=== PATIENT | male | born 1950 | race Caucasian/White ===

== ENCOUNTER 2017-11-07 08:36 | Observation (INO) | payer MEDICARE ==
[2017-11-07] MEDS ORDERED: Acetaminophen 500 MG TAB ONE (09:50)
[2017-11-07] MEDS ORDERED: methylPREDNISolone Sod Succ/PF 125 MG/2 ML VIAL ONE (09:52)
[2017-11-07] MEDS ORDERED: Sterile Water 10 ML ONE (09:53)
[2017-11-07 10:03] LABS: Hematocrit 43.2 % (42.0-52.0); Mean Platelet Volume 9.9 fL (7.4-10.4); Red Blood Cell (RBC) Count 4.57 mill/uL (4.70-6.10); White Blood Cell (WBC) Count 8.2 thou/uL (4.8-10.8)
[2017-11-07] MEDS ORDERED: Azithromycin 500 MG in Sodium Chloride 0.9% 250 ML 250 ML IVPB ONE (10:15)
[2017-11-07] MEDS ORDERED: Oseltamivir 75 MG CAP PO ONE (10:15)
[2017-11-07 10:18] LABS: ALT (SGPT) 29 U/L (8-55); AST (SGOT) 27 U/L (5-34); Alkaline Phosphatase 70 U/L (40-150); Anion Gap 12 mmol/L (10-20); BUN (Urea Nitrogen) 12 mg/dL (8.4-25.7); Bilirubin, Total 0.5 mg/dL (0.2-1.2); Calc. Creatinine Clearance 0 mL/min (70-130); Calcium 8.9 mg/dL (7.8-10.44); Carbon Dioxide 23 mmol/L (23-31); Chloride 102 mmol/L (98-107); Estimated GFR-MDRD 54; Globulin 3.2 g/dL (2.4-3.5); Protein, Total 7.4 g/dL (5.8-8.1)
[2017-11-07 10:24] LABS: Lactic Acid - Sepsis 1.6 mmol/L (0.5-2.2)
[2017-11-07 10:29] LABS: Metamyelocyte 2 % (0-0); Neutrophil 70 % (42-75)
--- NOTE | 2017-11-07 11:21 | RAD ---
PORTABLE CHEST: HISTORY: Cough and congestion. COMPARISON: 11/19/09. FINDINGS: There is focal density in the right lung base which produces tenting of the right hemidiaphragm. Thi s is a new finding from the prior exam. This could represent focal atelectasis and/or infiltrate; ho wever, I cannot exclude other processes in the right lung base. This should be followed up. Lungs are otherwise clear. Heart and mediastinum are unremarkable. IMPRESSION: New density in the right lung base obscuring portions of the right hemidiaphragm. Recommend close fo llowup with PA and lateral views of the chest after medical treatment. CODE T POS: [facility]
[2017-11-07] MEDS ORDERED: Bisacodyl 5 MG TAB PO PRN (11:32)
[2017-11-07] MEDS ORDERED: cefTRIAXone\\ROCEPHIN 1 GM in Sodium Chloride 0.9% 100 ML IVPB SCH (11:45)
--- NOTE | 2017-11-07 11:50 | HP ---
PRIMARY CARE PHYSICIAN: Qamar Garcia M.D. CHIEF COMPLAINT: Cough. HISTORY OF PRESENT ILLNESS: Mr. Narayanan is a pleasant 66-year-old gentleman who was seen at [facility] on 11/07/2017. He reports that he developed a cough 2 days ago. He repor ts that it is nonproductive, accompanied by body aches, on and off headaches, had a temperature of 10 2 degrees Fahrenheit this morning. He denies any sick contacts. He received influenza vaccine this year. He came to the emergency room because he was not improving. REVIEW OF SYSTEMS: The following complete review of systems was negative, unless otherwise mentioned in the HPI or below: Constitutional: Weight loss or gain, sense of well-being, ability to conduct usual activities, exerc ise tolerance. Skin/Breast: Rash, itching, changes in hair growth or loss, nail changes, breast lumps, tenderness, swelling, nipple discharge. Eyes: Vision, double vision, tearing, blind spots, pain. ENT/Mouth: Headaches (location, time of onset, duration, precipitating factors), vertigo, lightheade dness, injury. Vision, double vision, tearing, blind spots, pain, nose bleeding, colds, obstruction, discharge, dental difficulties, gingival bleeding, dentures, neck stiffness, pain, tenderness, masses in thyroid or other areas Cardiovascular: Precordial pain, substernal distress, palpitations, syncope, dyspnea on exertion, or thopnea, nocturnal paroxysmal dyspnea, edema, cyanosis, hypertension, heart murmurs, varicosities, ph lebitis, claudication. Respiratory: Pain, shortness of breath, wheezing, stridor, cough, hemoptysis, fever or night sweats Gastrointestinal: Poor appetite, dysphagia, indigestion, abdominal pain, heartburn, eructation, naus ea, vomiting, hematemesis, jaundice, constipation, or diarrhea, abnormal stools (evin-colored, tarry, bloody, greasy, foul smelling), flatulence, hemorrhoids, recent changes in bowel habits. Genitourinary: Urgency, frequency, dysuria, nocturia, hematuria, polyuria, oliguria, unusual (or marilyn nge in) color of urine, stones, hesitancy, change in size of stream, dribbling, acute retention or in continence, libido, potency. Musculoskeletal: Pain, swelling, redness or heat of muscles or joints, limitation, of motion, muscul ar weakness, atrophy, cramps. Neurologic/Psychiatric: Convulsions, paralyses, tremor, incoordination, paraesthesias, difficulties with memory of speech, sensory or motor disturbances, or muscular coordination (ataxia, tremor), emot ional problems, anxiety, depression, previous psychiatric care, unusual perceptions, hallucinations. Allergy/Immunologic: Skin rash, anemia, bleeding tendency, polydipsia, polyuria, intolerance to heat or cold. PAST MEDICAL HISTORY: Significant for dyslipidemia, hypertension, coronary artery disease followed b more Reza. PAST SURGICAL HISTORY: Significant for CABG x3 in [address] Hedrick and right knee surgery. SOCIAL HISTORY: The patient smokes 1 pack of cigarettes a day. He reports occasional alcohol use. He denies recreational drug use. FAMILY HISTORY: Significant for myocardial infarction in his father. CODE STATUS: The patient is FULL CODE. ALLERGIES: No known drug allergies. CURRENT MEDICATIONS: Include amlodipine 10 mg daily, Coenzyme Q10 100 mg daily, Colace 200 mg 2 time s a day, fish oil 1 capsule daily, Zyrtec 10 mg daily, multivitamins 1 tablet daily, aspirin 81 mg da steven, and Crestor 20 mg daily. PHYSICAL EXAMINATION: GENERAL: On examination, Mr. Narayanan is awake and alert, not in acute distress. VITAL SIGNS: Blood pressure is 134/74, pulse is 65. He is breathing at rate of 20 and saturating 97 % on room air, temperature is 99.1 degrees Fahrenheit. EYES: No scleral icterus. No conjunctival pallor. ENT: Dry mucosal membranes, no oropharyngeal erythema or exudates. NECK: Supple, nontender, normal range of movement. Trachea is midline. RESPIRATORY: Accessory muscles of breathing are not active. Chest wall movements are symmetric bila terally. He has occasional expiratory wheeze. CARDIOVASCULAR: S1 and S2 are heard, regular. Peripheral pulses are palpable. No carotid bruit, no pericardial rub. ABDOMEN: Soft, nontender, bowel sounds are heard, no hepatomegaly, no splenomegaly. NEUROLOGIC: Cranial nerves II-XII are intact. Deep tendon reflexes are 2+. SKIN: No rashes or subcutaneous nodules. LYMPHATICS: No cervical lymphadenopathy. MUSCULOSKELETAL: Power is 5/5 in all 4 extremities. Normal range of movement at all major extremity joints. PSYCHIATRIC: Normal mood, normal affect, patient is oriented to person, place, and time. IMAGING DATA AND LABORATORY DATA: Mr. Narayanan's labs and investigations were reviewed. He had a est x-ray, portable, which appears to show an early infiltrate in the right lower lobe. Laboratory i nvestigations show normal white count, normal hemoglobin, normal platelet count, mildly decreased sod ium of 133, elevated creatinine of 1.32, otherwise unremarkable comprehensive metabolic profile and n ormal BNP. ASSESSMENT AND PLAN: Mr. Narayanan is a pleasant 66-year-old gentleman who was seen at [facility] on 11/07/2017. His problem list includes: 1. Influenza A infection. Mr. Narayanan has received a dose of Tamiflu, he will be continued on the same. He will be admitted to the hospital in observation status for now. 2. Pneumonia: Suspected. He has received ceftriaxone and azithromycin, we will continue the same f or now. 3. Hyponatremia: Mild, we will recheck. 4. Coronary artery disease: Appears stable. 5. Renal insufficiency: His creatinine today is 1.32, last known creatinine on 06/28/2017 was 1.09. Clinically, he appears dehydrated. We will provide intravenous fluids and recheck creatinine. 6. Tobacco abuse: Patient has been counseled regarding tobacco cessation. We will start him on crow otine replacement therapy. Many thanks for allowing me to participate in your patient's care. Please feel free to contact me wi th any questions or concerns. LEVEL OF RISK: Moderate. LEVEL OF COMPLEXITY: Moderate.
[2017-11-07] MEDS ORDERED: Ondansetron ODT 4 MG TAB SL PRN (13:04)
[2017-11-07] MEDS ORDERED: Acetaminophen 325 MG TAB PO PRN (13:04)
[2017-11-07] MEDS ORDERED: Ondansetron HCl/PF 4 MG/2 ML Vial IVP PRN (13:04)
[2017-11-07] MEDS: Sodium Chloride 0.9% 1,000 ML IV SCH (14:35)
[2017-11-07 15:23] VITALS: BMI 31.8
[2017-11-07] MEDS ORDERED: Nicotine 21 MG PATCH TD SCH (21:00)
[2017-11-07] MEDS ORDERED: Oseltamivir 75 MG CAP PO SCH (21:00)
[2017-11-08] MEDS: Sodium Chloride 0.9% 1,000 ML IV SCH (03:10)
[2017-11-08 04:25] LABS: #Lymphocytes 1.2 thou/uL (1.20-3.40); #Monocytes 0.8 thou/uL (0.11-0.59); #Neutrophils 6.7 thou/uL (1.40-6.50); %Basophils 0.1 % (0.0-1.0); %Eosinophils 0.3 % (0.0-10.0); %Lymphocytes 13.5 % (21.0-51.0); %Monocytes 9.5 % (0.0-10.0); Hematocrit 40.5 % (42.0-52.0); Mean Platelet Volume 8.9 fL (7.4-10.4); White Blood Cell (WBC) Count 8.8 thou/uL (4.8-10.8)
[2017-11-08 04:41] LABS: Anion Gap 14 mmol/L (10-20); BUN (Urea Nitrogen) 18 mg/dL (8.4-25.7); Calc. Creatinine Clearance 88 mL/min (70-130); Carbon Dioxide 22 mmol/L (23-31); Chloride 102 mmol/L (98-107); Estimated GFR-MDRD 61
[2017-11-08] MEDS ORDERED: Enoxaparin Sodium 40 MG/0.4 ML SYRINGE SC SCH (09:00)
[2017-11-08] MEDS ORDERED: Benzonatate 100 MG CAP PO PRN (09:59)
[2017-11-08] MEDS ORDERED: cefTRIAXone\\ROCEPHIN 1 GM, Syringe 0.4 ML in Sterile Water 9.6 ML SLOW IVP SCH (10:00)
[2017-11-08] MEDS ORDERED: Benzonatate 100 MG CAP PO SCH (10:00)
[2017-11-08] MEDS ORDERED: Oseltamivir 75 MG CAP PO SCH ×2 (10:00→21:00)
[2017-11-08] MEDS ORDERED: Azithromycin 500 MG in Sodium Chloride 0.9% 250 ML 250 ML IVPB SCH (11:00)
[2017-11-08 11:27] VITALS: BP 164/83; TEMP 98.6
--- NOTE | 2017-11-08 13:44 | DIS ---
PRIMARY CARE PHYSICIAN: Qamar Garcia M.D. DATE OF ADMISSION: 11/07/2017 DATE OF DISCHARGE: 11/08/2017 DISCHARGE DIAGNOSES: 1. Influenza A infection. 2. Community-acquired pneumonia. CONDITION OF PATIENT AT THE TIME OF DISCHARGE: Stable. I assessed Mr. Narayanan on the day of discha rge. He denies any chest pain. Cough is still present. He denies any fevers. Vital signs are stab le. S1 and S2 are heard, regular. Lungs are clear to auscultation bilaterally. DISCHARGE MEDICATIONS: Amlodipine 10 mg daily, cetirizine 10 mg daily, fish oil 1 capsule daily, mul tivitamins 1 capsule daily, Tamiflu 75 mg 2 times a day for 4 more days, rosuvastatin 20 mg at bedtim e, Coenzyme Q10 of 200 mg daily, Z-Jairo as directed, and cefdinir 300 mg 2 times a day for 10 days. HOSPITAL COURSE: Mr. Narayanan is a pleasant 66-year-old gentleman, who was admitted to [facility] on 11/08/2017 for influenza A infection. Chest x-ray done at the time of admiss ion showed a new density in the right lung base, obscuring portions of the right hemidiaphragm. He w ill need follow up PA and lateral views of the chest after medical treatment. He was started on Tamiflu, ceftriaxone, and azithromycin. He is being discharged home to complete co urse of Tamiflu, azithromycin, and cefdinir. He also had acute renal insufficiency, with a creatinine of 1.32 on the day of admission. It resolve d and creatinine was 1.18 on the day of discharge. He has mild hyponatremia, with a sodium of 134 on the day of discharge. His white count is 8800, hemoglobin 13.8, platelet count 191,000, and blood u alfred nitrogen is 18. Many thanks for allowing me to participate in your patient's care. Please feel free to contact me wi th any questions or concerns. As mentioned earlier, he will need follow up chest x-ray after medical treatment to ensure that any significant lung pathology is not being missed.
[2017-11-08] MEDS ORDERED: Cefdinir 300 MG CAP PO SCH (21:00)
== END 2017-11-08 13:56 | disposition home or self-care (01) ==
LOC: ERS 08:36 → T4-B 12:46
PROVIDERS: ADMIT Internal Medicine; ATTEND Internal Medicine
DX: J09.X1 Influenza due to identified novel influenza A virus with pneumonia (principal); J18.8 Other pneumonia, unspecified organism; N28.9 Disorder of kidney and ureter, unspecified; E87.1 Hypo-osmolality and hyponatremia; I10 Essential (primary) hypertension; I25.10 Atherosclerotic heart disease of native coronary artery without angina pectoris; F17.210 Nicotine dependence, cigarettes, uncomplicated; J30.1 Allergic rhinitis due to pollen; Z82.49 Family history of ischemic heart disease and other diseases of the circulatory system; Z79.2 Long term (current) use of antibiotics; Z79.899 Other long term (current) drug therapy; Z95.1 Presence of aortocoronary bypass graft; Z98.890 Other specified postprocedural states
CPT/HCPCS: 71010; 80048; 80053; 83605; 83880; 85025 ×2; 87040; 87804 ×2; 94640; 96361 ×2; 96365; 96375; 99284; G0378; 36415; A4216; J0456; J0696; J1650; J2930; J7050

== ENCOUNTER 2018-06-02 10:44 | Outpatient (CLI) | payer MEDICARE ==
--- NOTE | 2018-06-02 13:40 | RAD ---
PA AND LATERAL VIEWS CHEST: HISTORY: Bronchitis. COMPARISON: 11/07/2017 FINDINGS: Changes of median sternotomy are again seen. The heart size is normal. Scarring in the right lung b ase is again noted. No lobar consolidation, pneumothoraces, or pleural effusions are seen. There ar e degenerative changes in the spine. IMPRESSION: No radiographic evidence of acute cardiopulmonary process. POS: [facility]
== END 2018-06-02 10:45 | disposition home or self-care (01) ==
LOC: RAD-FRANK 10:44
DX: J40 Bronchitis, not specified as acute or chronic (principal)
CPT/HCPCS: 71046

== ENCOUNTER 2019-03-17 10:58 | Outpatient (CLI) | payer MEDICARE ==
--- NOTE | 2019-03-17 11:33 | RAD ---
ACUTE ABDOMINAL SERIES: Date: 03/17/19 HISTORY: Left upper and right upper quadrant abdominal pain for 1 week. COMPARISON: Chest x-ray on 06/02/18. FINDINGS: Postsurgical changes related to CABG are again noted. The cardiac silhouette and pulmonary vasculatur e are within normal limits. There is increased density again seen at the right lung base, likely rela varghese to pleural and parenchymal scarring right lung base. The lungs are otherwise clear. There is foca l eventration of each hemidiaphragm. No free intraperitoneal air is seen beneath the hemidiaphragms. Bowel gas pattern is nonspecific. Calcifications are seen within the region of the prostate gland. No additional suspicious calcifications are seen. Vascular calcifications are seen in the thoracic aort a. Degenerative changes are noted in the spine. IMPRESSION: 1. Nonspecific bowel gas pattern. 2. Pleural and parenchymal scarring right lung base. POS: OFF
== END 2019-03-17 10:59 | disposition home or self-care (01) ==
LOC: SCSRAD 10:58
PROVIDERS: ATTEND Nurse Practitioner Family
DX: R10.12 Left upper quadrant pain (principal); R10.11 Right upper quadrant pain; J98.4 Other disorders of lung
CPT/HCPCS: 74022

== ENCOUNTER 2019-03-20 11:39 | Emergency (ER) | payer MEDICARE ==
[~2019-03-20 11:39] MED LIST: Iopamidol 370 76% 100 ML VIAL ONE
[2019-03-20 11:57] LABS: #Basophils 0.1 thou/uL (0.0-0.2); #Eosinphils 0.2 thou/uL (0.0-0.7); #Lymphocytes 2.2 thou/uL (1.20-3.40); #Monocytes 0.9 thou/uL (0.11-0.59); #Neutrophils 6.3 thou/uL (1.40-6.50); %Eosinophils 1.9 % (0.0-10.0); %Lymphocytes 22.9 % (21.0-51.0); %Monocytes 9.7 % (0.0-10.0); %Neutrophils 64.5 % (42.0-75.0); Hemoglobin 16.7 g/dL (14.0-18.0); Mean Corpuscular HGB CONC 33.8 g/dL (32.0-36.0); Mean Corpuscular Volume 91.9 fL (78.0-98.0); Mean Platelet Volume 9.9 fL (7.4-10.4); Platelet Count 225 thou/uL (130-400); RBC Distribution Width 11.9 % (11.5-14.5); Red Blood Cell (RBC) Count 5.37 mill/uL (4.70-6.10); White Blood Cell (WBC) Count 9.7 thou/uL (4.8-10.8)
[2019-03-20 12:09] LABS: Bilirubin Negative (Negative); Blood, Urine Negative (Negative); Clarity Clear (Clear); Glucose, Urine (Dipstick) Negative (Negative); Leukocyte Trace (Negative); Nitrite Negative (Negative); Protein, Urine (Dipstick) Negative (Neg-Trace); Urobilinogen 0.2 mg/dL (0.2-1.0)
[2019-03-20 12:12] LABS: ALT (SGPT) 28 U/L (8-55); AST (SGOT) 20 U/L (5-34); Albumin 4.5 g/dL (3.4-4.8); Alkaline Phosphatase 80 U/L (40-150); Anion Gap 14 mmol/L (10-20); BUN (Urea Nitrogen) 14 mg/dL (8.4-25.7); Bilirubin, Total 0.5 mg/dL (0.2-1.2); Calc. Creatinine Clearance 0 mL/min (70-130); Calcium 9.8 mg/dL (7.8-10.44); Carbon Dioxide 24 mmol/L (23-31); Chloride 104 mmol/L (98-107); Estimated GFR-MDRD 63; Globulin 2.8 g/dL (2.4-3.5); Glucose 96 mg/dL (80-115); Lipase 30 U/L (8-78); Potassium 4.5 mmol/L (3.5-5.1); Protein, Total 7.3 g/dL (5.8-8.1); Sodium 137 mmol/L (136-145)
[2019-03-20 12:13] LABS: Bacteria/HPF None Seen HPF (None Seen); RBC/HPF 0-3 HPF (0-3); Squamous Epithelial 0-3 HPF (0-3); WBC/HPF 0-3 HPF (0-3)
--- NOTE | 2019-03-20 12:37 | ULT ---
RIGHT UPPER QUADRANT ULTRASOUND: HISTORY: Right upper quadrant pain FINDINGS: The liver, gallbladder, right kidney and visualized portions of the pancreas (pancreas is mostly obsc ured by overlying bowel gas) are normal. The common duct measures 4 mm in diameter. No free fluid is seen in the Nicole's pouch. IMPRESSION: Poor visualization of the pancreas, otherwise unremarkable exam.
--- NOTE | 2019-03-20 13:18 | CT ---
CT Abdomen Pelvis W Con History: [Right upper quadrant pain] Comparison: None. Findings: There is scarring in the right lower lobe similar to the examination from 2010. Lung bases are clear. Gallbladder is normal. Pancreas and spleen and adrenal glands are normal. Mild diverticular disease of the sigmoid colon without active current inflammation. No free intraperi toneal gas or fluid. Moderate vascular calcifications of the aorta with multifocal areas of ectasia measuring up to 2.4 cm . No aneurysmal dilatation. Dense calcifications of the prostate. No retroperitoneal adenopathy. Multifocal subcentimeter renal hypodensities are present. No hydroneph rosis. No abnormal enhancing renal mass. Acetabular osteophyte formation is present. Moderate degenerative changes lower lumbar spine. Impression: Chronic findings. No acute intra-abdominal abnormality.
[2019-03-20] MEDS ORDERED: Sucralfate 1 GM TAB ONE (13:27)
[2019-03-20] MEDS ORDERED: Famotidine 20 MG TAB ONE (13:27)
== END 2019-03-20 13:36 | disposition home or self-care (01) ==
LOC: SCSER 11:39
DX: R10.11 Right upper quadrant pain (principal); E78.5 Hyperlipidemia, unspecified; I10 Essential (primary) hypertension; I25.10 Atherosclerotic heart disease of native coronary artery without angina pectoris; I25.2 Old myocardial infarction; F17.210 Nicotine dependence, cigarettes, uncomplicated; Z79.899 Other long term (current) drug therapy; Z79.82 Long term (current) use of aspirin
CPT/HCPCS: 74177; 76705; 80053; 81003; 81015; 82550; 83690; 84484; 85025; Q9967

== ENCOUNTER 2019-12-11 11:48 | Outpatient (CLI) | payer MEDICARE ==
--- NOTE | 2019-12-11 12:02 | RAD ---
2 view chest: [12/11/2019] Comparison:06/02/2018 HISTORY: Cough FINDINGS: Midline sternotomy wires are present. There is mild increased linear interstitial density w ith pulmonary hyperinflation. Stable linear density is seen in the right lung base laterally, consistent with stable scar. IMPRESSION: Interstitial prominence and pulmonary hyperinflation. Chronic scar within the right base laterally. No focal consolidation or alveolar edema.
== END 2019-12-11 11:49 | disposition home or self-care (01) ==
LOC: RAD-FRANK 11:48
PROVIDERS: ATTEND Nurse Practitioner Family
DX: J40 Bronchitis, not specified as acute or chronic (principal); J98.4 Other disorders of lung
CPT/HCPCS: 71046